=== PATIENT | female | born 1955 | race Caucasian/White ===

== ENCOUNTER → 2018-08-25 | Outpatient (CLI) | payer BC, OTHER ==
--- NOTE | 2018-08-25 11:01 | RAD ---
DATE: 08/25/2017 EXAM: DIGITAL SCREEN BILAT W/CAD HISTORY: Routine screening COMPARISON: 09/04/2015 and 08/03/2014 mammographic exams This study was interpreted with the benefit of Computerized Aided Detection (CAD). Breast Density: DENSE The breast parenchyma is dense, which could reduce the sensitivity of mammography. Breast parenchyma level density D. FINDINGS: Minimal benign calcification is present. No masses or distortion. No suspicious calcification grouping. IMPRESSION: No suspicious change. Tomosynthesis is recommended on an annual basis especially considering the patient's dense breast parenchyma. BI-RADS CATEGORY: 1 NEGATIVE RECOMMENDED FOLLOW-UP: 12M 12 MONTH FOLLOW-UP PQRS compliance statement: Patient information was entered into a reminder system with a target due date in one year for the next mammogram. Mammography is a sensitive method for finding small breast cancers, but it does not detect them all and is not a substitute for careful clinical examination. A negative mammogram does not negate a clinically suspicious finding and should not result in delay in biopsying a clinically suspicious abnormality. "Our facility is accredited by the [employer] Mammography Program."
== END | disposition home or self-care (01) ==
LOC: MAMMO 07:53
PROVIDERS: ATTEND Specialist
DX: Z12.31 Encounter for screening mammogram for malignant neoplasm of breast (principal)
CPT/HCPCS: 77067

== ENCOUNTER → 2019-06-28 | Outpatient (CLI) | payer BC ==
--- NOTE | 2019-06-28 10:42 | RAD ---
Examination: Ultrasound pelvis HISTORY: postmenopausal bleeding, spotting COMPARISON: None available. FINDINGS: The uterus measures 3.9 x 2.2 cm. Endometrium measures 3 mm in thickness. Minimal amount of fluid identified in the endometrium. There is a questionable tiny 5 mm echogenicity identified in the endometrium. The right and left ovaries could not be identified. IMPRESSION: 1. Questionable tiny 5 mm echogenicity identified in the endometrium, nonspecific, a small polyp is possible however no definite blood flow is visualized within. Electronically signed by: Rafi Yao MD (06/28/2019 10:39 AM) [facility] [place]
== END | disposition home or self-care (01) ==
LOC: US 08:41
PROVIDERS: ATTEND Obstetrics & Gynecology
DX: N95.0 Postmenopausal bleeding (principal)
CPT/HCPCS: 76830; 76856